=== PATIENT | female | born 1990 ===

== ENCOUNTER 2016-11-18 21:25 | Observation (INO) | payer OTHER ==
[2016-11-18 21:40] VITALS: RESP 16; O2SAT 100
--- NOTE | 2016-11-18 22:05 | ED PDOC ---
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 States since then she's had R sided pelvic pain, R buttock pain, and R sided neck pain. Denies head injury, LOC, N/V, vaginal bleeding, abdominal pain. Also reports that she is currently 17 weeks . LMP 07/12/2016. care is with OB clinic. Past Medical History Reviewed: Historical Data, Nursing Documentation, Vital Signs Vital Signs: Last Vital Signs Temp 98.2 F 11/19/16 00:09 Pulse 72 11/19/16 00:09 Resp 16 11/19/16 00:09 BP 108/59 L 11/19/16 00:09 Pulse Ox 100 11/19/16 00:31 - Family History Family History: States: No Known Family Hx - Allergies Allergies/Adverse Reactions: Allergies Allergy/AdvReac Type Severity Reaction Status Date / Time No Known Allergies Allergy Verified 11/18/16 21:36 Review of Systems ROS Statement: Except As Marked, All Systems Reviewed And Found Negative Genitourinary Female: Positive for: Pelvic Pain Musculoskeletal: Positive for: Neck Pain Physical Exam - Physical Exam Appears: Positive for: Well, Non-toxic, No Acute Distress Head Exam: Positive for: ATRAUMATIC, NORMAL INSPECTION, NORMOCEPHALIC Skin: Positive for: Normal Color, Warm. Negative for: Rash Eye Exam: Positive for: Normal appearance Gastrointestinal/Abdominal: Positive for: Normal Exam, Bowel Sounds, Soft. Negative for: Tenderness Back: Positive for: Normal Inspection. Negative for: L CVA Tenderness, R CVA Tenderness, Vertebral Tenderness (including cervical spine) Extremity: Positive for: Normal ROM, Other (no hip/pelvic tenderness, swelling, or deformity b/l) Neurologic/Psych: Positive for: Alert, Oriented, Gait (steady, unassisted) - Laboratory Results Result Diagrams: 11/18/16 22:18 11/18/16 22:18 Urine POC: Positive Urine dip results: Positive for: Leukocyte Esterase (trace). Negative for: Blood, Nitrate, Ketones, Glucose, Bilirubin, Protein - ECG O2 Sat by Pulse Oximetry: 100 ED OBSERVATION Discharge: Yes Date of observation admission: 11/18/16 Time of observation admission: 22:05 - Observation admission statement Patient is being placed in observation because:: Pelvic pain, s/p fall - Progress Note Progress Note: 11/18/16 23:05 US: single live intrauterine Pt. informed of results. Disposition - Clinical Impression Clinical Impression: Pelvic pain during , Contusion, hip, Neck sprain - Patient ED Disposition Is Patient to be Admitted: No - Disposition Disposition: Routine/Home Disposition Time: 00:29 Condition: STABLE
[2016-11-18 22:21] LABS: BASO % 0.3 % (0.0-2.0); EOS # 0.1 K/uL (0.0-0.7); EOS % 0.6 % (0.0-4.0); HEMATOCRIT 35.2 % (34.0-47.0); LYMPH # 1.6 K/uL (1.0-4.3); LYMPH % 15.7 % (20.0-40.0); MEAN CORPUSCULAR HEMOGLOBIN 28.4 pg (27.0-31.0); MEAN CORPUSCULAR HGB CONC 33.3 g/dL (33.0-37.0); MONO # 0.6 K/uL (0.0-0.8); MONO % 6.4 % (0.0-10.0); NEUT # 7.8 K/uL (1.8-7.0); RED CELL DISTRIBUTION WIDTH 14.4 % (11.5-14.5); WHITE BLOOD COUNT 10.1 K/uL (4.8-10.8)
[2016-11-18 22:28] LABS: RBC URINE 1 /hpf (0-3); URINE BACTERIA RARE (<OCC); URINE BILIRUBIN NEGATIVE (NEGATIVE); URINE BLOOD NEGATIVE (NEGATIVE); URINE COLOR COLORLESS (YELLOW); URINE GLUCOSE (UA) NEG (Normal); URINE KETONE NEGATIVE (NEGATIVE); URINE LEUKOCYTE ESTERASE NEG Leu/uL (Negative); URINE PROTEIN NEGATIVE (NEGATIVE); URINE UROBILINOGEN 0.2-1.0 mg/dL (0.2-1.0); WBC URINE 1 /hpf (0-5)
[2016-11-18 22:31] LABS: ALB/GLOB RATIO 1.2 (1.0-2.1); ALKALINE PHOSPHATASE 81 U/L (38-126); ALT/SGPT 61 U/L (9-52); AST/SGOT 38 U/L (14-36); BILIRUBIN,TOTAL 0.4 mg/dl (0.2-1.3); BLOOD UREA NITROGEN 6 mg/dl (7-17); CALCIUM 9.1 mg/dL (8.4-10.2); CARBON DIOXIDE 20 mmol/L (22-30); CHLORIDE 106 mmol/L (98-107); GFR AFRICAN-AMERICAN > 60; GLUCOSE,RANDOM 84 mg/dL (65-105); POTASSIUM 3.9 MMOL/L (3.6-5.0); SODIUM 134 mmol/l (132-148); TOTAL PROTEIN 7.1 G/DL (6.3-8.2)
--- NOTE | 2016-11-18 23:36 | US ---
EXAM: US After First Trimester, Transabdominal CLINICAL HISTORY: 25 years old, female; Pain and injury or trauma; Fall; Work related; Initial encounter; Abrasion; Right lower quadrant; complicated by abdominal or pelvic pain; Second trimester; Gestational age or lmp: 07/12/2016; Injury date: 11/18/2016; Injury details: Pt fell at work, complains of rt side pain; ; Additional info: Pelvic pain, S/P fall TECHNIQUE: Real-time transabdominal obstetrical ultrasound of the maternal pelvis and a second or third trimester with image documentation. COMPARISON: No relevant prior studies available. FINDINGS: Fetus: Single live intrauterine gestation. Heart rate: heart rate of 136 beats per minute. Presentation: Variable. Placenta: Anterior placenta. No placenta previa or abruption. Amniotic fluid: Normal. Anatomy: No gross anomaly is appreciated. BIOMETRICS Gestational age by US: Estimated gestational age of 18 weeks 0 days by measurements. EFW: Estimated weight of 219 g. BPD: 4.0 cm, correlating with 18 weeks 0 days. HC: 14.9 cm, correlating with 18 weeks 0 days. AC: 12.4 cm, correlating with 18 weeks 0 days. FL: 2.6 cm, correlating with 18 weeks 0 days. MATERNAL: Uterus: Unremarkable. No myometrial mass. Cervix: No cervical dilatation or effacement. Adnexa: Ovaries not visualized. No adnexal masses. Free fluid: No significant free fluid. IMPRESSION: 1. Single live intrauterine gestation.
[2016-11-19 00:10] VITALS: BP 108/59; PULSE 72; TEMP 98.2
== END 2016-11-19 00:31 | disposition home or self-care (01) ==
LOC: H.ER 21:25 → H.EROBSV 21:53
PROVIDERS: ADMIT Emergency Medicine; ATTEND Emergency Medicine
DX: S70.01XA Contusion of right hip, initial encounter (principal); S13.9XXA Sprain of joints and ligaments of unspecified parts of neck, initial encounter; W10.8XXA Fall (on) (from) other stairs and steps, initial encounter; Z3A.17 17 weeks gestation of pregnancy; Y92.89 Other specified places as the place of occurrence of the external cause
CPT/HCPCS: 36415; 76815; 80053; 81003; 81025; 84702; 85025; 87086; 99283; G0378

== ENCOUNTER 2017-04-02 14:10 | Inpatient (IN) | payer MEDICAID, SELFPAY ==
[2017-04-02 18:24] VITALS: BMI 30.2
[2017-04-02] MEDS ORDERED: Oxytocin 30 UNITS in Sodium Chloride 0.9% 500 ML IV SCH (18:30)
[2017-04-02 19:02] VITALS: RESP 18
[2017-04-02 19:36] LABS: BASO % 0.4 % (0.0-2.0); EOS % 0.3 % (0.0-4.0); HEMOGLOBIN 12.2 g/dL (12.0-16.0); LYMPH # 2.1 K/uL (1.0-4.3); LYMPH % 18.8 % (20.0-40.0); MEAN CELL VOLUME 87.1 fl (81.0-99.0); MEAN CORPUSCULAR HEMOGLOBIN 27.9 pg (27.0-31.0); MEAN PLATELET VOLUME 9.1 fl (7.2-11.7); MONO # 0.4 K/uL (0.0-0.8); MONO % 3.5 % (0.0-10.0); NEUT # 8.8 K/uL (1.8-7.0); NRBC % 0.2 % (0.0-0.0); RBC 4.36 Mil/uL (3.80-5.20); RED CELL DISTRIBUTION WIDTH 14.5 % (11.5-14.5); WHITE BLOOD COUNT 11.5 K/uL (4.8-10.8)
[2017-04-03] MEDS ORDERED: Nalbuphine 20 mg/ml Inj (1 ml) IVP PRN (02:29)
[2017-04-03] MEDS: Lactated Ringer's 1,000 ML IV SCH ×5 (03:00→19:14)
[2017-04-03] MEDS ORDERED: Fentanyl/Bupivacaine HCl 250 ML EPI ONE (12:11)
--- NOTE | 2017-04-03 13:44 | OBPN ---
Datetime: 04/03/2017 13:01 IP Progress Impression: Reassuring heart rate IP Procedures: Sterile Vag Exam IP Progress Plan: Continue present management FHR - Baseline A Provider: 130s-140s IP Progress Note Comment: Pt comfortable s/p epidural. Both MWB/FWB reassuring at this time. Ej nue current management Vital Signs Provider: Reviewed; Within Normal Limits NICHD Accel Fetus A IP Provider: [id number] FHR Category Provider Fetus A: Category I NICHD Variability Prov Fetus A: Moderate 6-25bpm Dilatation, Provider: 1 Effacement, Provider: 100 Station, Provider: -1 NICHD Decel Fetus A IP Provider: None
[2017-04-03] MEDS ORDERED: Oxytocin 30 UNITS in Sodium Chloride 0.9% 500 ML IM ONE (15:45)
[2017-04-03] MEDS ORDERED: Oxytocin 30 UNITS in Sodium Chloride 0.9% 500 ML IV ONE (16:45)
[2017-04-03] MEDS ORDERED: Lidocaine 1% Inj (20ml) ONE (19:43)
[2017-04-03] MEDS ORDERED: Benzocaine/Menthol SPRAY TOP PRN (19:54)
[2017-04-03] MEDS ORDERED: Oxytocin 30 UNITS in Sodium Chloride 0.9% 500 ML IV SCH (20:00)
[2017-04-04 07:42] LABS: HEMOGLOBIN 9.1 g/dL (12.0-16.0); MEAN CELL VOLUME 87.1 fl (81.0-99.0); MEAN CORPUSCULAR HEMOGLOBIN 28.6 pg (27.0-31.0); MEAN CORPUSCULAR HGB CONC 32.8 g/dL (33.0-37.0); RBC 3.19 Mil/uL (3.80-5.20); RED CELL DISTRIBUTION WIDTH 14.5 % (11.5-14.5); WHITE BLOOD COUNT 15.7 K/uL (4.8-10.8)
--- NOTE | 2017-04-04 08:24 | OBDS ---
DELIVERY PERSONNEL Delivery Doctor: Ivy Ferris MD Nicu Rn: Jorje Quiñones RN Anesthesiologist: MATERNAL INFORMATION Delivery Anesthesia: Local; Epidural Medications in Delivery: PITOCIN 30 UNITS IN 500ML IN LR Estimated Blood Loss (ml): 200 Placenta Cultured: No Maternal Complications: None Provider Comments: Delivery live baby girl at 19:40 baby was bulb suctioned on the perineum and sung sferred to the maternal chest. The cord was clamped, 3 vessels noted. Cord blood was obtained and sen t to the lab. Placenta was delivered at 19:43 intact. EBL was 200 ml. There was 1st degree periurethr al laceration, repaired. The mother tolerated the procedure well, baby skin to skin with Apgars 9/9 w eighting 2175g. YBecerra PGY 1 Addendum: I was present and participated in entire delivery. No complications. Patient tolerated delivery an d repair well. Josy LABOR SUMMARY EDC: 04/23/2017 00:00 No. Babies in Womb: 1 Attempted: No Labor Anesthesia: Epidural LABOR INFORMATION Reason for Induction: Oligohydramnios Onset of Labor: 04/03/2017 09:13 Complete Dilatation: 04/03/2017 18:37 Cervical Ripening Agents: Cervidil (Annotations: Cervidil 10mg inserted by Dr. Gregory ) Oxytocin: Augmentation Group B Beta Strep: Negative Antibiotics # of Doses: 0 Steroids Given: None Reason Steroids Not Administered: Not Applicable MEMBRANES Membranes Rupture Method: Spontaneous Rupture of Membranes: 04/03/2017 09:13 Length of Rupture (hrs): 10.45 Amniotic Fluid Color: Clear Amniotic Fluid Amount: Small STAGES OF LABOR Stage 1 hrs: 9 Stage 1 min: 24 Stage 2 hrs: 1 Stage 2 min: 3 Stage 3 hrs: 0 Stage 3 min: 3 Total Time in Labor hrs: 10 Total Time in Labor min: 30 VAGINAL DELIVERY Episiotomy: None Laceration Extension: First Degree Laceration Type: Periurethral Laceration Repair Note: First-degree periurethral laceration. Area infiltrated with 1% lidocaine. La ceration repaired with 2. 0 Rapide without complication. Patient tolerated repair well. Initial Vag Sponge Count: 0 Final Vag Sponge Count: 5 Initial Vag Sharps Count: 0 Final Vag Sharps Count: 1 Sponge Count Correct: Yes Sharps Count Correct: Yes BABY A INFORMATION Infant Delivery Date/Time: 04/03/2017 19:40 Method of Delivery: Vaginal Born in Route : No : N/A Forceps: N/A Vacuum Extraction: N/A Shoulder Dystocia : No SHOULDER DYSTOCIA BABY A Delivery Date/Time: 04/03/2017 19:40 PRESENTATION/POSITION BABY A Presentation: Cephalic Cephalic Presentation: Vertex Breech Presentation: N/A PLACENTA INFORMATION BABY A Placenta Delivery Time : 04/03/2017 19:43 Placenta Method of Delivery: Spontaneous Placenta Status: Delivered SCORES BABY A Heart Rate 1 min: >100 bpm Resp Effort 1 min: Good Cry Reflex Irritability 1 min: Cough or Sneeze or Pulls Away Muscle Tone 1 min: Active Motion Color 1 min: Body [place], Extremities Blue Resuscitation Effort 1 min: Tactile Stimulation SCORE 1 MIN: 9 Heart Rate 5 min: >100 bpm Resp Effort 5 min: Good Cry Reflex Irritability 5 min: Cough or Sneeze or Pulls Away Muscle Tone 5 min: Active Motion Color 5 min: Body [place], Extremities Blue Resuscitation Effort 5 min: N/A SCORE 5 MIN: 9 INFORMATION BABY A Gestational Age at Delivery: 37.0 Gestational Status: Term Infant Outcome : Liveborn Infant Condition : Stable Infant Sex: Female IDENTIFICATION/MEDS BABY A ID Band Number: [id number] ID Band Location: Left Leg; Left Arm WEIGHT/LENGTH BABY A Infant Birthweight (gms): 2175 Weight (lb): 4 Weight (oz): 13 CORD INFORMATION BABY A No. Cord Vessels: 3 Nuchal Cord : N/A Infant Suction: None
--- NOTE | 2017-04-04 11:32 | OBPPN ---
Datetime: 04/04/2017 06:21 PP Pain Prov: Within normal limits PP Nausea Prov: Denies PP Flatus Prov: Yes PP BM Prov: No PP Breasts Prov: Not Done PP Heart Prov: Normal PP Lungs Prov: Normal PP Abdomen/Uterus Prov: Normal PP Lochia Prov: Normal PP Vulva/Perineum Prov: Not Done PP CVA Tenderness Prov: Not Done PP Extremities Prov: Normal PP C/S Incision Prov: Not Applicable PP Progress Prov: Normal PP Impression Prov: Normal progression PP Plan Prov: Continue present management PP Progress Note Prov: S: 26 yo s/p NVD. Pt. is seen and examined at bedside this morning. N o overnight events. Pt reports occasional abdominal pain, but well controlled with pain meds. Pt is a mbulating without any difficulties. Breast/bottle feeding baby. Tolerating PO diet. Lochia is similar to light menses in volume. Voiding freely, no BM yet but passing gas per rectum. Denies fever/chills , diarrhea, nausea/vomiting, chest pain, dyspnea, and dizziness. VS: stable GEN: NAD Cardio: s1s2, no m/r/g Resp: clear breath sounds b/l Abdomen: BS+, NT, Uterus is firm and at the level of the umbilicus. EXT: No edema, calves nontender NEURO/PSYCHI: AAOx3, no grossly focal deficit, preserved affect and mood. A/P: 26 yo s/p NVD. Pt remains afebrile, tolerating pain with medication, doing well on P PD 1. OOB with caution. SCDs for DVT prophylaxis, pt ambulating Ibuprofen 600mg for pain. Colace 100mg PO BID for constipation Encourage . PP CBC: pending Anticipated d/c: 04/05/17 YBecerra PGY 1 . Pt was seen and reviewed with resident and I agree with the above. IP PP Procedures: None Vital Signs Provider PP: Reviewed
[2017-04-05 18:43] VITALS: BP 115/70; PULSE 79; TEMP 97.6; O2SAT 99
--- NOTE | 2017-04-05 22:49 | OBPPN ---
Datetime: 04/05/2017 06:28 PP Pain Prov: Within normal limits PP Nausea Prov: Denies PP Flatus Prov: Yes PP BM Prov: Yes PP Breasts Prov: Not Done PP Heart Prov: Normal PP Lungs Prov: Normal PP Abdomen/Uterus Prov: Normal PP Lochia Prov: Normal PP Vulva/Perineum Prov: Not Done PP CVA Tenderness Prov: Not Done PP Extremities Prov: Normal PP C/S Incision Prov: Not Applicable PP Progress Prov: Not Applicable PP Impression Prov: Normal progression PP Plan Prov: Discharge PP Progress Note Prov: S: 26 yo s/p NVD. Pt. is seen and examined at bedside this morning. N o overnight events. Pt reports occasional abdominal pain, but well controlled with pain meds. Pt is a mbulating without any difficulties. Breast/bottle feeding baby. Tolerating PO diet. Lochia is similar to light menses in volume. Voiding freely, + BM. Denies fever/chills, diarrhea, nausea/vomiting, steff st pain, dyspnea, and dizziness. VS: stable GEN: NAD Cardio: s1s2, no m/r/g Resp: clear breath sounds b/l Abdomen: BS+, NT, Uterus is firm and at the level of the umbilicus. EXT: No edema, calves nontender NEURO/PSYCHI: AAOx3, no grossly focal deficit, preserved affect and mood. A/P: 26 yo s/p NVD. Pt remains afebrile, tolerating pain with medication, doing well on P PD 2. OOB with caution. SCDs for DVT prophylaxis, pt ambulating Ibuprofen 600mg for pain. Colace 100mg PO BID for constipation Iron 325 mg PO for anemia Encourage . PP CBC: .04/12.8 Discharge today. YBecerra PGY 1 Pt seen and examined with Resident and I agree with the above. IP PP Procedures: None Vital Signs Provider PP: Reviewed
--- NOTE | 2017-04-05 22:55 | OBDCSUM ---
Datetime: 04/05/2017 06:30 Discharge Diagnosis Prov Other: s/p
== END 2017-04-05 13:50 | disposition home or self-care (01) | DRG 775 ==
LOC: H.EROB2 14:10 → H.L&D 18:22 → H.EROB2 18:26 → H.L&D 04-03 10:39 → H.OB/GYN 04-03 22:30
PROVIDERS: ADMIT Obstetrics & Gynecology Gynecology; ATTEND Obstetrics & Gynecology Gynecology
PROC: 4A1HXCZ Monitoring of Products of Conception, Cardiac Rate, External Approach (ICD-10-PCS; 2017-04-02)
PROC: 10E0XZZ Delivery of Products of Conception, External Approach (ICD-10-PCS; principal; 2017-04-03)
PROC: 0HQ9XZZ Repair Perineum Skin, External Approach (ICD-10-PCS; 2017-04-03)
DX: O41.03X0 Oligohydramnios, third trimester, not applicable or unspecified (principal); K59.00 Constipation, unspecified; O71.82 Other specified trauma to perineum and vulva; Z37.0 Single live birth; Z3A.37 37 weeks gestation of pregnancy

== ENCOUNTER 2017-04-07 16:36 | Emergency (ER) | payer MEDICAID, SELFPAY ==
[2017-04-07 16:36] VITALS: BMI 30.2
[2017-04-07 16:46] VITALS: BP 127/65; PULSE 99; RESP 16; TEMP 98.3; O2SAT 100
--- NOTE | 2017-04-07 17:42 | ED PDOC ---
HPI: General Adult Time Seen by Provider: 04/07/17 16:55 Chief Complaint (Nursing): Breast Problem Chief Complaint (Provider): Breast problem History Per: Patient History/Exam Limitations: no limitations Onset/Duration Of Symptoms: Days (x3) Current Symptoms Are (Timing): Still Present Additional Complaint(s): Ana María Sheldon is a 26 year old female, with no past medical history, who presents to the emergency department complaining of bilateral breast engorgement. Patient is 3 days , she is having difficulty with latching. Patient reports she has been supplementing with formula. She has been massaging and taking warm showers with no relief. Patient denies any fever or chills. No further medical complaints. PMD: None provided. Past Medical History Reviewed: Historical Data, Nursing Documentation, Vital Signs Vital Signs: Last Vital Signs Temp 98.3 F 04/07/17 16:42 Pulse 99 H 04/07/17 16:42 Resp 16 04/07/17 16:42 BP 127/65 04/07/17 16:42 Pulse Ox 100 04/07/17 17:48 - Medical History PMH: Denies: Depression, Diabetes, HTN - Surgical History Surgical History: No Surg Hx - Family History Family History: States: Unknown Family Hx - Home Medications Home Medications: Ambulatory Orders Medication Instructions Recorded Ferrous Sulfate [Feosol] 325 mg PO DAILY #70 tab 04/05/17 Ibuprofen [Motrin Tab] 600 mg PO Q6 PRN #30 tab 04/05/17 Pnv No.95/Ferrous Fum/Folic AC 1 tab PO DAILY #0 MDD 1 04/05/17 [ Vitamin Tablet] - Allergies Allergies/Adverse Reactions: Allergies Allergy/AdvReac Type Severity Reaction Status Date / Time No Known Allergies Allergy Verified 11/18/16 21:36 Review of Systems ROS Statement: Except As Marked, All Systems Reviewed And Found Negative Constitutional: Positive for: Other (b/l breast engorgement). Negative for: Fever, Chills Physical Exam - Reviewed Nursing Documentation Reviewed: Yes Vital Signs Reviewed: Yes - Physical Exam Appears: Positive for: Well, Non-toxic, No Acute Distress Head Exam: Positive for: ATRAUMATIC, NORMAL INSPECTION, NORMOCEPHALIC Skin: Positive for: Normal Color, Warm, Dry Eye Exam: Positive for: Normal appearance Neck: Positive for: Painless ROM, Supple Cardiovascular/Chest: Positive for: Regular Rate, Rhythm, Other (b/l breast engorgement noted) Respiratory: Positive for: Normal Breath Sounds. Negative for: Respiratory Distress Extremity: Positive for: Normal ROM. Negative for: Deformity, Swelling Neurologic/Psych: Positive for: Alert, Oriented - ECG O2 Sat by Pulse Oximetry: 100 (RA) Pulse Ox Interpretation: Normal - Progress ED Course And Treament: SEEN BY GLOST KILN PLACER AND PROPER TECHNIQUE ADVISED. PATIENT WILL F/U WITH HER TOMORROW FOR FURTHER INSTRUCTION. Medical Decision Making Medical Decision Making: Initial impression: Initial Plan: -- consult. --reevaluation --Discussed with OB who recommended discussion with home planning consultant salesperson. ~ Scribe Attestation: Documented by Bhargav Liang, acting as a scribe for Shiraz Etienne PA-C. Provider Scribe Attestation: All medical record entries made by the Scribe were at my direction and personally dictated by me. I have reviewed the chart and agree that the record accurately reflects my personal performance of the history, physical exam, medical decision making, and the department course for this patient. I have also personally directed, reviewed, and agree with the discharge instructions and disposition. Disposition - Clinical Impression Clinical Impression: Breast engorgement - Patient ED Disposition Is Patient to be Admitted: No - Disposition Disposition: Routine/Home Disposition Time: 18:16 Condition: FAIR Instructions: Breast Care for the Breast Feeding Mother (ED) Forms: [employer] ([place]) Print Language: MAURITANIAN
== END 2017-04-07 18:30 | disposition home or self-care (01) ==
LOC: H.ER 16:36
DX: P83.4 Breast engorgement of newborn (principal)